=== PATIENT | female | born 1975 | race Hispanic/Latino ===

== ENCOUNTER 2018-10-14 18:09 | Emergency (ER) | payer MEDICAID, OTHER | END 2018-10-14 20:42 | disposition home or self-care (01) | LOC: EDH 18:09 | DX: M25.562 Pain in left knee (principal); R22.42 Localized swelling, mass and lump, left lower limb; Z72.0 Tobacco use | CPT/HCPCS: 73562; 93971 ==

== ENCOUNTER 2019-08-29 21:01 | Emergency (ER) | payer OTHER | END 2019-08-30 00:04 | disposition home or self-care (01) | LOC: EDH 21:01 | DX: M25.562 Pain in left knee (principal); X50.0XXA Overexertion from strenuous movement or load, initial encounter; Y93.41 Activity, dancing; Y92.89 Other specified places as the place of occurrence of the external cause; Y99.8 Other external cause status | CPT/HCPCS: 29505; 73562; 93971 ==